=== PATIENT | female | born 2000 | race Two or more races ===

== ENCOUNTER 2025-03-26 10:43 | Emergency (ER) | payer MEDICAID, OTHER ==
[~2025-03-26] VITALS: Ht 157.5 cm; Wt 115.5 kg
--- NOTE | 2025-03-26 11:33 | ED.PDOC ---
[facility] [employer] HPI Comments HPI: 25y F who presents to the ED for chief complaint of vaginal bleeding. - pt states she is currently 8 weeks , , and states she has been having vaginal spotting since earlier this AM - pt states her vaginal bleeding started at 0600 this AM and states it was constant until 1000 AM, with associated suprapubic cramps radiating the the the right side. - pt in the ED, otherwise denies any other associated complaints - pt states she otherwise recently started taking pre-jabari vitamins and has scheduled OB appt which is upcoming - pt otherwise denies any other associated complaints - pt denies any prior complications with prior pregnancies Past Medical history: denies Past Surgical history: denies Medications: denies Allergies: NKDA Social History: denies ETOH, denies tobacco use, denies drug use LUPIS: VAG SPOTTING HPI: Poor Historian. REVIEW OF SYSTEMS: CONSTITUTIONAL: Denies acute: fever, diaphoresis, chills, generalized weakness. HEAD: Denies acute: headache, photophobia Eyes: Denies acute: Double vision, vision loss, eye pain, eye discharge. EARS: Denies acute: tinnitus, hearing loss, ear discharge, ear pain, THROAT: Denies acute: sore throat, swelling, difficulty swallowing , pain with swallowing, change in voice. NECK: Denies acute: neck pain, neck swelling, stiff neck. HEART: Denies acute : chest pain, palpitations, LUNGS: Denies acute: SOB, wheezing, cough, hemoptysis ABDOMEN: Denies acute: abdominal pain, Nausea, Vomiting, diarrhea, melena , hematemesis, hematochezia SKIN: Denies acute: rash, redness, lesions, itchiness. EXTREMITIES: Denies acute: calf pain, numbness, tingling, weakness, denies pain in extremity. Denies acute: Low back pain. Neuro: Denies acute: focal neurological deficit, motor or sensory focal neurological deficit, tremors, seizure like activity, confusion, dizziness, change in mental status, loss of bowel or bladder function, cauda equina like symptoms. : Denies acute: dysuria, hematuria, flank pain, increase in urinary frequency. PSYCH: Denies acute: hallucination, suicidal ideation, homicidal ideation. FEMALE: Denies acute: foul odor, unusual discharge. PHYSICAL EXAM: General: ---no-----acute distress, awake and alert. Head: normocephalic, atraumatic. Neck: supple, trachea is midline, no swelling. Throat: Normal phonation. Eyes:, no erythema, no purulent discharge, no proptosis, no icterus. Heart: regular rate, regular rhythm, no significant murmur appreciated. Lungs: no apparent respiratory distress, Able to speak in full sentences. No wheezing, no rhonchi, no crackles. No stridors Clear to auscultation bilaterally. Abdomen: Minimal nonspecific lower abdomen mild tender to palpation, non distended, soft, no guarding, no rebound, + bowel sounds. Morbidly obese Neuro: Awake, Alert, oriented to name, self, situation, follows commands GCS=15. Speech is normal. Skin: no petechia, no purpura, no cyanosis, non-pale, not jaundice. Lower extremities: --no - Pitting edema no deformity, no focal swelling, no calf TTP. Makes eye contact. moves all four extremities. Face: no apparent facial droop. Ambulating in the ED independently. ED COURSE: Chief Complaint: Vaginal Bleed Time Seen by MD: 11:32 Reviewed Notes: Medications, Allergies Allergies: Coded Allergies: NO KNOWN ALLERGIES (Unverified , 03/26/25) Information Source: Patient Mode of Arrival: Ambulatory Brought in by: self Was a procedure done? Was a procedure done?: No Differential Diagnosis (GIVER) Vaginal Bleeding: - Complete, - Incomplete, - Inevitable, - Missed, - Threatened, Abruptio Placentae, Blood Loss Anemia, Cervicitis, Dysmenorrhea, Ectopic , Hormonal, Menorrhagia, Menometrorrhagia, Menstrual Bleeding, Myomatous Uterus, PID, Placenta Previa, Precipitous Hct, Trauma, UTI, Vaginitis, Other (Differential diagnosis includes but not limited to DU B, menorrhea, metromenorrhagia, neoplasm, coagulopat hy,, trauma, miscarriage, placenta previa, placental abruption, ) X-Ray, Labs, Meds, VS Vital Signs Date Time Temp Pulse Resp B/P (MAP) Pulse Ox O2 Delivery O2 Flow Rate FiO2 03/26/25 13:37 82 18 100 Room Air 03/26/25 13:37 97.7 82 18 124/74 (91) 100 97.7 03/26/25 10:56 98.9 86 13 107/69 (82) 96 98.9 Lab Test 03/26/25 11:20 03/26/25 10:58 Range/Units White Blood Count 5.8 4.4-10.8 10^3/uL Red Blood Count 5.32 H 4.0-5.20 10^6/uL Hemoglobin 10.6 L 12.2-16.2 g/dL Hematocrit 34.0 L 36.0-46.0 % Mean Corpuscular Volume 63.9 L 80.0-100.0 fL Mean Corpuscular Hemoglobin 19.9 L 28.0-32.0 pg Mean Corpuscular Hemoglobin Concent 31.1 L 32.0-36.0 g/dL Red Cell Distribution Width 17.6 H 11.8-14.3 % Platelet Count 229 140-450 10^3/uL Mean Platelet Volume 8.6 6.9-10.8 fL Neutrophils (%) (Auto) 65.0 37.0-80.0 % Lymphocytes (%) (Auto) 24.7 10.0-50.0 % Monocytes (%) (Auto) 8.3 0.0-12.0 % Eosinophils (%) (Auto) 1.4 0.0-7.0 % Basophils (%) (Auto) 0.6 0.0-2.0 % Neutrophils # (Auto) 3.8 1.6-8.6 10 ^3/uL Lymphocytes # (Auto) 1.4 0.4-5.4 10 ^3/uL Monocytes # (Auto) 0.5 0-1.3 10 ^3/uL Eosinophils # (Auto) 0.1 0-0.8 10 ^3/uL Basophils # (Auto) 0 0-0.2 10 ^3/uL Nucleated Red Blood Cells 0.0 % Sodium Level 137 136-145 mmol/L Potassium Level 4.2 3.5-5.1 mmol/L Chloride Level 105 98-107 mmol/L Carbon Dioxide Level 25 20-31 mmol/L Anion Gap 7 5-15 Blood Urea Nitrogen 9 9-23 mg/dL Creatinine 0.63 0.550-1.02 mg/dL Glomerular Filtration Rate Calc 125 >90 mL/min BUN/Creatinine Ratio 14.3 10.0-20.0 Serum Glucose 89 74-106 mg/dL Calcium Level 9.1 8.7-10.4 mg/dL Total Bilirubin 0.3 0.2-1.0 mg/dL Aspartate Amino Transferase (AST) 11 L 13-40 U/L Alanine Aminotransferase (ALT) 18 7-40 U/L Alkaline Phosphatase 57 46-116 U/L Total Protein 7.4 5.7-8.2 g/dL Albumin 4.4 3.2-4.8 g/dL Beta HCG, Quantitative 82489.8 H 1.5-4.2 mIU/mL Urine Color Colorless Yellow Urine Clarity Clear Clear Urine pH 7.0 5.0-9.0 Urine Specific [place] 1.007 1.001-1.035 Urine Protein Negative Negative Urine Ketones Negative Negative Urine Blood 1+ H Negative /uL Urine Nitrite Negative Negative Urine Bilirubin Negative Negative Urine Urobilinogen Normal Negative mg/dL Urine Leukocyte Esterase Negative Negative /uL Urine RBC <1 0 - 4 /hpf Urine Microscopic WBC 1 0-5 /HPF Urine Squamous Epithelial Cells Few <5 /hpf Urine Bacteria Few H None Seen /hpf Urine Glucose Normal Normal mg/dL [place] [id number] Ph: [phone] DIAGNOSTIC IMAGING Diagnostic Imaging Report : [id number] Signed PATIENT: MARCO ANTONIO BAUGH ACCT: [id number] UNIT: [id number] : 2000 LOC: ER ROOM / BED: / AGE / SEX: 25 / F ADM STATUS: REG ER SERVICE 1059 ORDERING PHYSICIAN: ANNI KENNEDY DO PROCEDURE(s): OB4US - OB ULTRASOUND COMP LESS 14WKS REASON: vag spotting ORDER NUMBER(s): [id number], ACCESSION NUMBER(s): [id number] CLINICAL HISTORY: Vaginal spotting. COMPARISON:None TECHNIQUE: Transabdominal grayscale sonographic imaging of the uterus and ovaries was performed, assisted by color Doppler technique. Duplex Doppler ultrasound of both ovaries was also performed. FINDINGS: The uterus measures 11.5 x 8.0 x 6.4 cm. There is an intrauterine gestational sac with yolk sac and pole visualized. [place]-rump length measures 0.31 cm, corresponding to an estimated gestational age of 5 weeks 6 days. heart rate measures 113 beats per minute. There is a small subchorionic hemorrhage adjacent to this gestational sac measuring up to 2.1 x 1.0 x 2i.4 cm. Right ovary measures 3.3 x 2.5 x 2.4 cm. Arterial and venous blood flow demonstrated. Left ovary measures 3.2 x 2.2 x 2.5 cm. Arterial and venous blood flow demonstrated. IMPRESSION: 1. Single living intrauterine with estimated gestational age of 5 weeks 6 days based on 1st trimester ultrasound crown-rump length. 2. Small subchorionic hemorrhage. ATED BY: JF PHILIP DO DICTATED DATE/TIME: 03/26/25 1254 SIGNED BY: JF PHILIP DO SIGNED DATE/TIME: 03/26/25 1254 CC: Time of 1ST Reevaluation: 00:00 Reevaluation 1ST: Improved Patient Education/Counseling: Diagnosis, Treatment Family Education/Counseling: No Family Present Comments Patient presented with the above HPI.--vaginal bleeding in 1st trimester----workup was initiated. patient was found with the above mentioned di agnosis. the following medications were ordered: please refer to order lists of meds and tests obtained by myself Dr. Kennedy. Patient ED course and VS have been stabilized. Patient has been reassessed in the ED and remained in a stable condition. Pertinent incidental findings were discussed with the patient and/or family. Patient/family voices understanding and is agreeable with plan. Patient has been observed in the ED adequate length of time to insure improvement/stability. Escalation of care considered: Consideration of escalation to observation or admission Patient was DISCHARGED home in a stable condition. All the reports of any imaging studies that were ordered by myself were reviewed by myself. Departure 1 Departure Time of Disposition: 13:24 Impression: Primary Impression: Vaginal bleeding during Additional Impression: Subchorionic hemorrhage Disposition: 01 HOME / SELF CARE / HOMELESS Condition: Stable Additional Instructions: Additional instructions: You MUST follow-up with your primary care/family doctor in 1 to 2 days. If you are unable to see your primary care/family doctor, please return to our emergency room for re-assessment and re-evaluation in 1 to 2 days. Return to the emergency room here in our facility or to the nearest ER [facility] if your symptoms change or worsen. CONSULTATIONS: you MUST Follow-up for consultation as soon as possible with: Dr.-OB Sellers doctor in 1-2 days. Please call for appointment. You MUST call the consultants office yourself to make an appointment. You may need to arrange that through your insurance and/or your primary/family doctor. If you are unable to see the lactation consultant in 1 to 2 days, you must return to our emergency room (or any other ER of your choice) for re-assessment and re- evaluation. Adequate fluid hydration. Pelvic rest. Repeat pelvic ultrasound in 3-4 days. Repeat beta-hCG levels in 48 to 72 hours Below is a copy of your radiological report for follow up: [place] [address] Ph: [phone] DIAGNOSTIC IMAGING Diagnostic Imaging Report : [id number] Signed PATIENT: MARCO ANTONIO BAUGH ACCT: [id number] UNIT: [id number] : 2000 LOC: ER ROOM / BED: / AGE / SEX: 25 / F ADM STATUS: REG ER SERVICE 1059 ORDERING PHYSICIAN: ANNI KENNEDY DO PROCEDURE(s): OB4US - OB ULTRASOUND COMP LESS 14WKS REASON: vag spotting ORDER NUMBER(s): [id number], ACCESSION NUMBER(s): [id number] CLINICAL HISTORY: Vaginal spotting. COMPARISON:None TECHNIQUE: Transabdominal grayscale sonographic imaging of the uterus and ovaries was performed, assisted by color Doppler technique. Duplex Doppler ultrasound of both ovaries was also performed. FINDINGS: The uterus measures 11.5 x 8.0 x 6.4 cm. There is an intrauterine gestational sac with yolk sac and pole visualized. [place]-rump length measures 0.31 cm, corresponding to an estimated gestational age of 5 weeks 6 days. heart rate measures 113 beats per minute. There is a small subchorionic hemorrhage adjacent to this gestational sac measuring up to 2.1 x 1.0 x 2i.4 cm. Right ovary measures 3.3 x 2.5 x 2.4 cm. Arterial and venous blood flow demonstrated. Left ovary measures 3.2 x 2.2 x 2.5 cm. Arterial and venous blood flow demonstrated. IMPRESSION: 1. Single living intrauterine with estimated gestational age of 5 we eks 6 days based on 1st trimester ultrasound crown-rump length. 2. Small subchorionic hemorrhage. ATED BY: JF PHILIP DO DICTATED DATE/TIME: 03/26/25 1254 SIGNED BY: JF PHILIP DO SIGNED DATE/TIME: 03/26/25 1254 CC: Discharged With: Self Stability Stability form required: No I personally scribed for ANNI KENNEDY DO ([email or web address]) on 03/26/25 at 11:33. Birgit ctronically submitted by Tawanna Reyez ([email or web address]). I personally scribed for ANNI KENNEDY DO ([email or web address]) on 03/26/25 at 11:34. Electronically submitted by Tawanna Reyez ([email or web address]). I personally scribed for ANNI KENNEDY DO ([email or web address]) on 03/26/25 at 19:57. Electronically submitted by Tawanna Reyez ([email or web address]). ANNI KENNEDY DO March 26, 2025 11:33
[2025-03-26 11:34] LABS: Eosinophils # (auto) 0.1 10 ^3/uL (0-0.8); Eosinophils % (auto) 1.4 % (0.0-7.0); Lymphocytes # (auto) 1.4 10 ^3/uL (0.4-5.4); Monocytes # (auto) 0.5 10 ^3/uL (0-1.3); Neutrophils # (auto) 3.8 10 ^3/uL (1.6-8.6); White Blood Cell 5.8 10^3/uL (4.4-10.8)
[2025-03-26 11:38] LABS: Basophils # (auto) 0 10 ^3/uL (0-0.2); Basophils % (auto) 0.6 % (0.0-2.0); Hemoglobin 10.6 g/dL (12.2-16.2); Lymphocytes % (auto) 24.7 % (10.0-50.0); Mean Corpuscular Hemoglobin 19.9 pg (28.0-32.0); Mean Corpuscular Hgb Conc. 31.1 g/dL (32.0-36.0); Mean Corpuscular Volume 63.9 fL (80.0-100.0); Monocytes % (auto) 8.3 % (0.0-12.0); Platelet Count (auto) 229 10^3/uL (140-450); Red Blood Cells 5.32 10^6/uL (4.0-5.20); Red Cell Distribution Width 17.6 % (11.8-14.3)
[2025-03-26 11:49] LABS: Alanine Aminotransferase 18 U/L (7-40); Albumin 4.4 g/dL (3.2-4.8); Alkaline Phosphatase 57 U/L (46-116); Anion Gap 7 (5-15); BUN/Creatinine Ratio 14.3 (10.0-20.0); Bilirubin, Total 0.3 mg/dL (0.2-1.0); Calcium 9.1 mg/dL (8.7-10.4); Carbon Dioxide 25 mmol/L (20-31); Chloride 105 mmol/L (98-107); Glucose 89 mg/dL (74-106); Potassium 4.2 mmol/L (3.5-5.1); Sodium 137 mmol/L (136-145); Total Protein 7.4 g/dL (5.7-8.2)
[2025-03-26 11:51] LABS: Aspartate Aminotransferase 11 U/L (13-40); Blood Urea Nitrogen 9 mg/dL (9-23)
[2025-03-26 11:55] LABS: Urine Bacteria FEW /hpf (None Seen); Urine Blood 1+ /uL (Negative); Urine Clarity Clear (Clear); Urine Color Colorless (Yellow); Urine Protein, UAD Negative (Negative); Urine Specific Gravity 1.007 (1.001-1.035); Urine Squamous Epithelial Cell FEW /hpf (<5); Urine Urobilinogen Normal (Negative); Urine WBC 1 /HPF (0-5)
--- NOTE | 2025-03-26 12:56 | DVH ---
CLINICAL HISTORY: Vaginal spotting. COMPARISON:None TECHNIQUE: Transabdominal grayscale sonographic imaging of the uterus and ovaries was performed, assi sted by color Doppler technique. Duplex Doppler ultrasound of both ovaries was also performed. FINDINGS: The uterus measures 11.5 x 8.0 x 6.4 cm. There is an intrauterine gestational sac with yolk sac and pole visualized. [place]-rump length measures 0.31 cm, corresponding to an estimated ges tational age of 5 weeks 6 days. heart rate measures 113 beats per minute. There is a small sub chorionic hemorrhage adjacent to this gestational sac measuring up to 2.1 x 1.0 x 2i.4 cm. Right ovary measures 3.3 x 2.5 x 2.4 cm. Arterial and venous blood flow demonstrated. Left ovary measures 3.2 x 2.2 x 2.5 cm. Arterial and venous blood flow demonstrated. IMPRESSION: 1. Single living intrauterine with estimated gestational age of 5 weeks 6 days based on 1st trimester ultrasound crown-rump length. 2. Small subchorionic hemorrhage.
[2025-03-26 13:37] VITALS: BP 124/74; PULSE 82; RESP 18; TEMP 97.7; O2SAT 100
== END 2025-03-26 13:38 | disposition home or self-care (01) ==
LOC: ER 10:43
DX: O20.8 Other hemorrhage in early pregnancy (principal); O20.0 Threatened abortion
CPT/HCPCS: 36415; 76801; 80053; 81001; 84702; 85025; 86850; 86900; 86901